=== PATIENT | female | born 1930 | race Caucasian/White ===

== ENCOUNTER 2016-12-26 14:52 | Outpatient (CLI) | payer MEDICARE, OTHER ==
[2016-09-12 09:47] VITALS: BP 124/75
== END 2016-12-26 14:53 ==
LOC: POD 14:52
PROVIDERS: ATTEND Podiatrist
DX: L89.893 Pressure ulcer of other site, stage 3 (principal); G60.3 Idiopathic progressive neuropathy
CPT/HCPCS: G0463

== ENCOUNTER 2017-01-09 14:28 | Outpatient (CLI) | payer MEDICARE, OTHER ==
[2016-09-12 09:47] VITALS: BP 124/75
== END 2017-01-09 14:30 ==
LOC: POD 14:28
PROVIDERS: ATTEND Podiatrist
DX: L89.893 Pressure ulcer of other site, stage 3 (principal)
CPT/HCPCS: 11042; G0463

== ENCOUNTER 2017-02-06 15:09 | Outpatient (CLI) | payer MEDICARE, OTHER ==
[2016-09-12 09:47] VITALS: BP 124/75
== END 2017-02-06 15:10 ==
LOC: POD 15:09
PROVIDERS: ATTEND Podiatrist
DX: L89.893 Pressure ulcer of other site, stage 3 (principal)
CPT/HCPCS: 11042; G0463

== ENCOUNTER 2017-03-02 13:41 | Outpatient (CLI) | payer MEDICARE, OTHER ==
[2016-09-12 09:47] VITALS: BP 124/75
== END 2017-03-02 13:42 ==
LOC: POD 13:41
PROVIDERS: ATTEND Podiatrist
DX: L89.893 Pressure ulcer of other site, stage 3 (principal); B35.1 Tinea unguium
CPT/HCPCS: G0463

== ENCOUNTER 2017-06-01 14:12 | Outpatient (CLI) | payer MEDICARE, OTHER ==
[2016-09-12 09:47] VITALS: BP 124/75
== END 2017-06-01 14:13 ==
LOC: POD 14:12
PROVIDERS: ATTEND Podiatrist
DX: L89.893 Pressure ulcer of other site, stage 3 (principal)
CPT/HCPCS: 11042; G0463

== ENCOUNTER 2017-06-15 14:06 | Outpatient (CLI) | payer MEDICARE, OTHER ==
[2016-09-12 09:47] VITALS: BP 124/75
== END 2017-06-15 14:07 ==
LOC: POD 14:06
PROVIDERS: ATTEND Podiatrist
DX: L89.893 Pressure ulcer of other site, stage 3 (principal)
CPT/HCPCS: G0463

== ENCOUNTER 2017-07-20 14:47 | Outpatient (CLI) | payer MEDICARE, OTHER ==
[2016-09-12 09:47] VITALS: BP 124/75
== END 2017-07-20 15:00 ==
LOC: POD 14:47
PROVIDERS: ATTEND Podiatrist
DX: L89.892 Pressure ulcer of other site, stage 2 (principal)
CPT/HCPCS: 11042

== ENCOUNTER 2017-08-03 14:37 | Outpatient (CLI) | payer MEDICARE, OTHER ==
[2016-09-12 09:47] VITALS: BP 124/75
== END 2017-08-03 14:40 ==
LOC: POD 14:37
PROVIDERS: ATTEND Podiatrist
DX: L89.892 Pressure ulcer of other site, stage 2 (principal)
CPT/HCPCS: G0463

== ENCOUNTER 2017-08-31 14:35 | Outpatient (CLI) | payer MEDICARE, OTHER ==
[2016-09-12 09:47] VITALS: BP 124/75
== END 2017-08-31 14:36 ==
LOC: POD 14:35
PROVIDERS: ATTEND Podiatrist
DX: L89.893 Pressure ulcer of other site, stage 3 (principal)
CPT/HCPCS: G0463

== ENCOUNTER 2017-11-16 12:41 | Outpatient (CLI) | payer MEDICARE, OTHER ==
[2016-09-12 09:47] VITALS: BP 124/75
== END 2017-11-16 12:42 ==
LOC: POD 12:41
PROVIDERS: ATTEND Podiatrist
DX: B35.1 Tinea unguium (principal); M79.674 Pain in right toe(s); M79.675 Pain in left toe(s)
CPT/HCPCS: 11721; G0463

== ENCOUNTER 2018-01-18 14:53 | Outpatient (CLI) | payer MEDICARE, OTHER ==
[2016-09-12 09:47] VITALS: BP 124/75
== END 2018-01-18 14:55 ==
LOC: POD 14:53
PROVIDERS: ATTEND Podiatrist
DX: B35.1 Tinea unguium (principal); M79.674 Pain in right toe(s); M79.675 Pain in left toe(s); L60.0 Ingrowing nail

== ENCOUNTER 2018-02-16 09:04 | Emergency (ER) | payer MEDICARE, OTHER ==
[2018-02-16] MEDS ORDERED: ORPHENADRINE CITRATE 60 MG/2ML IM ONE (09:27)
[2018-02-16] MEDS ORDERED: NAPROXEN 250 MG TABLET PO ONE (10:05)
--- NOTE | 2018-02-16 10:06 | ED Physician Documentation ---
General Adult - HISTORIAN Historian: patient, child - HPI Stated Complaint: neck pain Chief Complaint: General Adult Additional Information: Neck pain and increased flexion. Has tried hot packs, tylenol and tramadol with little relief. Has been sleeping in A chair the last two nights as placed on hospice and is using her side of the bed. Has had previous similar neck pain, but not as severe. Timing: still present - ROS CONST: denies: fever - PAST HX Past History: other (back and neck pain. CVA x 3) Surgeries/Procedures: hysterectomy, other (craniotomy, shoulder, D&C, pacemaker) Allergies/Adverse Reactions: Allergies Allergy/AdvReac Type Severity Reaction Status Date / Time Sulfa (Sulfonamide Allergy Mild Verified 02/16/18 09:19 Antibiotics) [Sulfa(Sulfonamide Antibiotics)] mannitol [From Zometa] Allergy Verified 02/16/18 09:19 meperidine HCl [From Demerol] Allergy Verified 02/16/18 09:19 water for injection,sterile Allergy Verified 08/11/16 12:34 [From Zometa] zoledronic acid [From Zometa] Allergy Verified 02/16/18 09:19 hydrocodone AdvReac Hallucinati Verified 02/16/18 09:19 ons Home Medications: Ambulatory Orders Medication Instructions Recorded Acetaminophen [Tylenol Extra 500 - 1,000 mg PO Q6 PRN 08/11/16 Strength] Anastrozole [Arimidex] 1 mg PO QD 08/11/16 Calcium Carb 600Mg/Vit D-3 400 1 each PO DAILY 08/11/16 [CALTRATE WITH D-3] Gabapentin [Neurontin] 600 mg PO HS 08/11/16 Multivitamin [Tab-A-Danni] 1 each PO DAILY 08/11/16 Polyethylene Glycol 3350 [Miralax] 17 gm PO DAILY PRN 08/11/16 Sertraline HCl [Zoloft] 75 mg PO DAILY 08/11/16 Timolol Maleate/Pf [Timoptic 0.5% 1 each EACHEYE HS 08/11/16 Ocudose Drop] Tramadol HCl [Ultram] 50 mg PO TID PRN 08/11/16 amLODIPine BESYLATE [Norvasc] 5 mg PO 0900 08/11/16 Docusate Sodium [Colace] 100 mg PO BID 08/29/16 Aspirin [Franky] 81 mg PO DAILY 02/16/18 Atorvastatin Calcium 10 mg PO HS 02/16/18 Cyclobenzaprine HCl [Flexeril] 5 mg PO Q12 #10 tablet 02/16/18 Metoprolol Tartrate [Lopressor] 25 mg PO BID 02/16/18 Oxybutynin Chloride [Ditropan Xl] 10 mg PO DAILY 02/16/18 - SOCIAL HX Smoking History: non-smoker - FAMILY HX Family History: No - VITAL SIGNS Vital Signs: Vital Signs Temp Pulse Resp BP Pulse Ox 97.8 F 83 18 148/83 95 02/16/18 09:19 02/16/18 09:19 02/16/18 09:19 02/16/18 09:19 02/16/18 09:19 - REVIEWED ASSESSMENTS Nursing Assessment Reviewed: Yes Vitals Reviewed: Yes Progress - Progress Progress: Only slight relief with norflex and naprosyn. Given MS and zofran. Home with flexeril script. Heat to area. ED Results Lab/Radiology - Orders Orders: ED Orders Category Date Time Status Orphenadrine Citrate [Norflex] Med 02/16/18 09:27 Discontinued 60 mg IM NOW ONE General Adult Physical Exam - PHYSICAL EXAM GENERAL APPEARANCE: moderate distress EENT: eye inspection normal, ENT inspection normal (external) NECK: other (held in 20 degrees flexion. cervixcal paraspinal muscle spasm tender to palpation, L>>R) RESPIRATORY: no resp distress, breath sounds normal CVS: reg rate & rhythm, heart sounds normal BACK: normal inspection, other (pain free movements) SKIN: warm/dry, normal color EXTREMITIES: normal range of motion (gait and stance), no evidence of injury NEURO: CN's nml as tested, motor nml, sensation nml Discharge Clincal Impression: Neck pain Prescriptions: Cyclobenzaprine HCl [Flexeril] 5 mg PO Q12 #10 tablet Referrals: Opal Mtz, JOSE DANIELN [Primary Care Provider] - 2 Days Additional Instructions: Sleep in your own bed as soon as possible. The flexeril makes you sleepy, so be very careful when ambulating. Gentle heat to the sore are4a for 30 minutes of each hour you area awake, followed by gentle stretching and motion. You can also take 1000 mg tylenol every 8 hours if needed for discomfort. Decision to Admit: NO Decision Time: 10:50
[2018-02-16] MEDS ORDERED: ONDANSETRON HCL 4 MG TAB.RAPDIS PO ONE (10:48)
[2018-02-16] MEDS ORDERED: MORPHINE SULFATE 10 MG/ML CARTRIDGE IM ONE (10:48)
[2018-02-16 11:36] VITALS: BP 158/86
== END 2018-02-16 11:34 ==
LOC: ED 09:04
DX: M54.2 Cervicalgia (principal)
CPT/HCPCS: A9270; J2270; J2360; 96372; 99284

== ENCOUNTER 2018-07-21 09:54 | Emergency (ER) | payer MEDICARE, OTHER ==
--- NOTE | 2018-07-21 10:30 | ED Physician Documentation ---
General Adult - HISTORIAN Historian: patient, child (son) - HPI Stated Complaint: Fall Chief Complaint: General Adult Additional Information: On the way to the bathroom when heel caught and she fell. Landed in sitting position and hit the back of her head on her chair. No LOC. Fell yesterday morning after she fell asleep in recliner, and hit the dfron of her head. HX brain bleed and craniotomy x2. Says right knee may have been a contributor to her fall this am. Says neither knee works well. No blurred vision or other discomfort. No treatment attempted. No other modifying factors or associated signs. - ROS CONST: denies: fever - PAST HX Past History: other (above) Other History: other (dental caries and fx'ed teeth; takes Prolea) Allergies/Adverse Reactions: Allergies Allergy/AdvReac Type Severity Reaction Status Date / Time Sulfa (Sulfonamide Allergy Mild Verified 07/21/18 10:24 Antibiotics) [Sulfa(Sulfonamide Antibiotics)] mannitol [From Zometa] Allergy Verified 07/21/18 10:24 meperidine HCl [From Demerol] Allergy Verified 07/21/18 10:24 water for injection,sterile Allergy Verified 08/11/16 12:34 [From Zometa] zoledronic acid [From Zometa] Allergy Verified 07/21/18 10:24 hydrocodone AdvReac Hallucinati Verified 07/21/18 10:24 ons Home Medications: Ambulatory Orders Medication Instructions Recorded Acetaminophen [Tylenol Extra 500 - 1,000 mg PO Q6 PRN 08/11/16 Strength] Anastrozole [Arimidex] 1 mg PO QD 08/11/16 Calcium Carb 600Mg/Vit D-3 400 1 each PO DAILY 08/11/16 [CALTRATE WITH D-3] Gabapentin [Neurontin] 600 mg PO HS 08/11/16 Multivitamin [Tab-A-Danni] 1 each PO DAILY 08/11/16 Polyethylene Glycol 3350 [Miralax] 17 gm PO DAILY PRN 08/11/16 Sertraline HCl [Zoloft] 75 mg PO DAILY 08/11/16 Timolol Maleate/Pf [Timoptic 0.5% 1 each EACHEYE HS 08/11/16 Ocudose Drop] Tramadol HCl [Ultram] 50 mg PO TID PRN 08/11/16 amLODIPine BESYLATE [Norvasc] 5 mg PO 0900 08/11/16 Docusate Sodium [Colace] 100 mg PO BID 08/29/16 Aspirin [Franky] 81 mg PO DAILY 02/16/18 Atorvastatin Calcium 10 mg PO HS 02/16/18 Cyclobenzaprine HCl [Flexeril] 5 mg PO Q12 #10 tablet 02/16/18 Metoprolol Tartrate [Lopressor] 25 mg PO BID 02/16/18 Oxybutynin Chloride [Ditropan Xl] 10 mg PO DAILY 02/16/18 - SOCIAL HX Smoking History: non-smoker Alcohol Use: none Drug Use: none - FAMILY HX Family History: No (no signif) - VITAL SIGNS Vital Signs: Vital Signs Temp Pulse Resp BP Pulse Ox 98.0 F 86 19 111/57 96 07/21/18 10:18 07/21/18 10:18 07/21/18 10:18 07/21/18 10:18 07/21/18 10:18 - REVIEWED ASSESSMENTS Nursing Assessment Reviewed: No Vitals Reviewed: No Progress - Progress Progress: Report Submission Date: Jul 21, 2018 11:38:12 AM CDT Patient Study Name: DAYANNA LARIOS Date: Jul 21, 2018 10:46:03 AM CDT Modality Type: CT\SR Gender: F Description: CT BRAIN W/O CONTRAST : 34 Institution: [facility] Physician: MELODY MATOS CT head without contrast History: Fall, headache Technique: Images through the brain were obtained without contrast. Findings: No prior examination is available for comparison. Craniotomy changes are noted in the left parietal region. Flori holes are present on the right. There is no mass, midline shift, hydrocephalus hemorrhage. The ventricles and cortical sulci are enlarged, consistent with atrophy. Lucency in the periventricular white matter indicates microvascular ischemic change. No extraaxial fluid collection is identified. Impression: Chronic, postoperative and age related changes. No acute intracranial process. Electronically signed on Jul 21, 2018 11:38:12 AM CDT by: Eric Keys Report Submission Date: Jul 21, 2018 11:45:12 AM CDT Patient Study Name: DAYANNA LARIOS Date: Jul 21, 2018 10:49:45 AM CDT Modality Type: CT\SR Gender: F Description: CT C-SPINE W/O CONTRAS : 34 Institution: [facility] Physician: MELODY MATOS - CT cervical spine History: Fall Technique: Images through the cervical spine were obtained. Multiplanar reconstructions were performed. Findings: No fracture, subluxation or abnormal bone destruction is identified. The vertebral bodies are of normal height. Degenerative disc disease with loss of disc height, anterior and posterior osteophyte formation is noted at C5/C6 and C6 evident. Degenerative changes of the facet joints are present at all levels. Spinal canal is adequate. Prevertebral soft tissues are normal. Impression: Advanced multilevel degenerative change but no acute abnormality. Electronically signed on Jul 21, 2018 11:45:12 AM CDT by: Eric Keys ED Results Lab/Radiology - Orders Orders: ED Orders Category Date Time Status CT BRAIN W/O CONTRAST Stat Exams 07/21/[address] C-SPINE W/O CONTRAST Stat Exams 07/21/18 Ordered General Adult Physical Exam - PHYSICAL EXAM GENERAL APPEARANCE: no distress EENT: eye inspection normal, ENT inspection normal, pharynx normal, SO, TM's nml (poorly visualized 2/2 cerumen; rodolfo hearing aids), other (2 cm diam contusion right occiput. 1 cm elevation) NECK: normal inspection CVS: reg rate & rhythm, heart sounds normal ABDOMEN: soft, normal bowel sounds, no distension BACK: normal inspection SKIN: warm/dry, normal color EXTREMITIES: no evidence of injury NEURO: CN's nml as tested, motor nml, sensation nml Discharge Clincal Impression: Scalp contusion Qualifiers: Encounter type: initial encounter Qualified Code(s): S00.03XA - Contusion of scalp, initial encounter Fall Qualifiers: Encounter type: initial encounter Qualified Code(s): W19.XXXA - Unspecified fall, initial encounter Referrals: Opal Mtz PRN [Primary Care Provider] - 2 Days Condition: Good Disposition: 01 HOME, SELF-CARE Decision to Admit: NO Decision Time: 11:53
--- NOTE | 2018-07-21 11:46 | Diagnostic Imaging Report ---
MELODY MATOS [facility] [address] [facility] [address] [place] [address]. [id number] Report Submission Date: Jul 21, 2018 11:45:12 AM CDT Patient Study Name: DAYANNA LARIOS Date: Jul 21, 2018 10:49:45 AM CDT Modality Type: CT\SR Gender: F Description: CT C-SPINE W/O CONTRAS : 34 Institution: [facility] Physician: MELODY MATOS CT cervical spine History: Fall Technique: Images through the cervical spine were obtained. Multiplanar reconstructions were performed. Findings: No fracture, subluxation or abnormal bone destruction is identified. The vertebral bodies are of normal height. Degenerative disc disease with loss of disc height, anterior and posterior osteophyte formation is noted at C5/C6 and C6 evident. Degenerative changes of the facet joints are present at all levels. Spinal canal is adequate. Prevertebral soft tissues are normal. Impression: Advanced multilevel degenerative change but no acute abnormality. Electronically signed on Jul 21, 2018 11:45:12 AM CDT by: Eric STANFORD
--- NOTE | 2018-07-21 11:47 | Diagnostic Imaging Report ---
MELODY MATOS [facility] [address] [facility] [address] [address] Report Submission Date: Jul 21, 2018 11:38:12 AM CDT Patient Study Name: DAYANNA LARIOS Date: Jul 21, 2018 10:46:03 AM CDT Modality Type: CT\SR Gender: F Description: CT BRAIN W/O CONTRAST : 34 Institution: [facility] Physician: MELODY MATOS CT head without contrast History: Fall, headache Technique: Images through the brain were obtained without contrast. Findings: No prior examination is available for comparison. Craniotomy changes are noted in the left parietal region. Flori holes are present on the right. There is no mass, midline shift, hydrocephalus hemorrhage. The ventricles and cortical sulci are enlarged, consistent with atrophy. Lucency in the periventricular white matter indicates microvascular ischemic change. No extraaxial fluid collection is identified. Impression: Chronic, postoperative and age related changes. No acute intracranial process. Electronically signed on Jul 21, 2018 11:38:12 AM CDT by: Eric STANFORD
[2018-07-21 12:23] VITALS: BP 108/54
== END 2018-07-21 11:59 | disposition home or self-care (01) ==
LOC: ED 09:54
DX: S00.03XA Contusion of scalp, initial encounter (principal); W19.XXXA Unspecified fall, initial encounter; Y92.9 Unspecified place or not applicable; Y93.9 Activity, unspecified; Y99.9 Unspecified external cause status
CPT/HCPCS: 70450; 72125; 99283

== ENCOUNTER 2018-10-25 15:23 | Outpatient (CLI) | payer MEDICARE, OTHER ==
[2018-10-25 15:56] LABS: COLOR,URINE AMBER (YELLOW)
[2018-10-25 15:57] LABS: APPEARANCE,URINE CLOUDY (CLEAR); OCCULT BLOOD,URINE 3+ (NEGATIVE); PH URINE 6.5 (5.0 - 8.0); UROBILINOGEN URINE 0.2 Eu (0.2-1.0)
== END 2018-10-25 15:25 ==
LOC: LAB 15:23
PROVIDERS: ATTEND Internal Medicine
DX: R31.9 Hematuria, unspecified (principal); B96.20 Unspecified Escherichia coli [E. coli] as the cause of diseases classified elsewhere; Z16.11 Resistance to penicillins
CPT/HCPCS: 81002; 87086; 87186

== ENCOUNTER 2019-06-06 09:44 | Emergency (ER) | payer MEDICARE, OTHER ==
--- NOTE | 2019-06-06 10:05 | ED Physician Documentation ---
General Adult - HISTORIAN Historian: patient - HPI Stated Complaint: L foot/ankle pain Chief Complaint: General Adult Onset: hours Timing: still present Severity: moderate Further Comments: yes (Pt is an 88 yo female with spontaneous onset pain in L ankle and foot. Pt often gets pain in her feet "before it rains," but this pain is different. Pt uses a walker.) - ROS CONST: no problems EYES/ENT: none CVS/RESP: none GI/: none MS/SKIN/LYMPH: other (L ankle pain) - PAST HX Past History: other (Afib, HTN, Neuropathy) Surgeries/Procedures: hysterectomy, other (appendectomy, ortho surgery) Allergies/Adverse Reactions: Allergies Allergy/AdvReac Type Severity Reaction Status Date / Time Sulfa (Sulfonamide Allergy Mild Verified 06/06/19 09:59 Antibiotics) [Sulfa(Sulfonamide Antibiotics)] mannitol [From Zometa] Allergy Verified 06/06/19 09:59 meperidine HCl [From Demerol] Allergy Verified 06/06/19 09:59 water for injection,sterile Allergy Verified 06/06/19 09:59 [From Zometa] zoledronic acid [From Zometa] Allergy Verified 06/06/19 09:59 hydrocodone AdvReac Hallucinati Verified 06/06/19 09:59 ons Home Medications: Ambulatory Orders Medication Instructions Recorded Gabapentin [Neurontin] 600 mg PO HS 08/11/16 Polyethylene Glycol 3350 [Miralax] 17 gm PO DAILY PRN 08/11/16 Sertraline HCl [Zoloft] 75 mg PO DAILY 08/11/16 Timolol Maleate/Pf [Timoptic 0.5% 1 each EACHEYE HS 08/11/16 Ocudose Drop] Tramadol HCl [Ultram] 50 mg PO TID PRN 08/11/16 amLODIPine BESYLATE [Norvasc] 5 mg PO 0900 08/11/16 Aspirin [Franky] 81 mg PO DAILY 02/16/18 Atorvastatin Calcium 10 mg PO HS 02/16/18 Metoprolol Tartrate [Lopressor] 25 mg PO BID 02/16/18 Oxybutynin Chloride [Ditropan Xl] 10 mg PO DAILY 02/16/18 - SOCIAL HX Smoking History: non-smoker - FAMILY HX Family History: No - VITAL SIGNS Vital Signs: Vital Signs Temp Pulse Resp BP Pulse Ox 108/54 07/21/18 12:21 - REVIEWED ASSESSMENTS Nursing Assessment Reviewed: Yes Vitals Reviewed: Yes Progress - Progress Progress: Examination: Plain film left foot History: PAIN IN LEFT FOOT Findings: 3 views of the left foot demonstrates osteopenia. Articular dege nerative changes. No displaced fracture lucency. Inferior calcaneal spur. Impression: Osteopenia and degenerative changes. No acute appearing cortical abnormality. Examination: Plain film left ankle History: PAIN IN ANKLE Findings: 3 views of the left ankle demonstrates osteopenia. Articular degenerative changes. Likely old fracture deformity distal fibula. Calcaneal spur. Lateral soft tissue swelling. Impression: Osteopenia and degenerative changes. No acute appearing cortical abnormality. Lateral soft tissue swelling. Ankle Air Splint improved able to ambulate with walker D/c instructions: Wear ankle splint and continue to use your walker and pain medication, Tramadol, as directed. Follow up with primary provider in about a week if symptoms persist. Occasionally a small fracture cannot be seen on the initial x-ray. General Adult Physical Exam - PHYSICAL EXAM GENERAL APPEARANCE: mild distress EENT: pharynx normal NECK: normal inspection, supple RESPIRATORY: no resp distress, chest non-tender CVS: irregularly irregular rhy ABDOMEN: soft BACK: normal inspection, no CVA tenderness SKIN: warm/dry, normal color EXTREMITIES: other (L ankle tenderness laterally, mild swelling) NEURO: motor nml, other (baseling status) Discharge Clincal Impression: Left ankle sprain Qualifiers: Encounter type: initial encounter Involved ligament of ankle: unspecified ligament Qualified Code(s): S93.402A - Sprain of unspecified ligament of left ankle, initial encounter Referrals: Opal Mtz PRN [Primary Care Provider] - Condition: Stable Disposition: 01 HOME, SELF-CARE Decision to Admit: NO Decision Time: 11:14
[2019-06-06 11:30] VITALS: BP 124/75
--- NOTE | 2019-06-12 09:40 | Diagnostic Imaging Report ---
LYNN SCHNEIDER [facility] [address] [facility] [address] [address] Report Submission Date: Jun 06, 2019 10:41:44 AM CDT Patient Study Name: DAYANNA LARIOS Date: Jun 06, 2019 10:09:57 AM CDT Modality Type: DX Gender: F Description: ANKLE 3 VIEWS OR MORE : 34 Institution: [facility] Physician: LYNN SCHNEIDER Examination: Plain film left ankle History: PAIN IN ANKLE Findings: 3 views of the left ankle demonstrates osteopenia. Articular degenerative changes. Likely old fracture deformity distal fibula. Calcaneal spur. Lateral soft tissue swelling. Impression: Osteopenia and degenerative changes. No acute appearing cortical abnormality. Lateral soft tissue swelling. Electronically signed on Jun 06, 2019 10:41:44 AM CDT by: Emanuel STANFORD
--- NOTE | 2019-06-12 09:41 | Diagnostic Imaging Report ---
LYNN SCHNEIDER [facility] [address] [facility] [address] [address] Report Submission Date: Jun 06, 2019 10:41:39 AM CDT Patient Study Name: DAYANNA LARIOS Date: Jun 06, 2019 10:09:57 AM CDT Modality Type: DX Gender: F Description: FOOT 3 VIEWS OR MORE : 34 Institution: [facility] Physician: LYNN SCHNEIDER Examination: Plain film left foot History: PAIN IN LEFT FOOT Findings: 3 views of the left foot demonstrates osteopenia. Articular degenerative changes. No displaced fracture lucency. Inferior calcaneal spur. Impression: Osteopenia and degenerative changes. No acute appearing cortical abnormality. Electronically signed on Jun 06, 2019 10:41:39 AM CDT by: Emanuel STANFORD
== END 2019-06-06 11:29 | disposition home or self-care (01) ==
LOC: ED 09:44
DX: S93.402A Sprain of unspecified ligament of left ankle, initial encounter (principal); X58.XXXA Exposure to other specified factors, initial encounter; Y99.8 Other external cause status
CPT/HCPCS: 73610; 73630; 99281; 99282